=== PATIENT | male | born 2000 | race Caucasian/White ===

== ENCOUNTER 2023-03-27 02:46 | Emergency (ER) | payer MEDICAID, OTHER ==
[~2023-03-27] VITALS: Ht 172.7 cm; Wt 86.0 kg
[2023-03-27] MEDS ORDERED: TETRACAINE 0.5% OPHTH SOLN 4 ML BTL (SINGLE DOSE ONLY) ONE (03:04)
[2023-03-27] MEDS ORDERED: FLUORESCEIN 1 MG OPHTHALMIC STRIPS ONE (03:04)
[2023-03-27 03:06] VITALS: BP 144/100
--- NOTE | 2023-03-27 03:30 | ED EENT ---
History of Present Illness General Chief Complaint: Eye Problems Stated Complaint: RT EYE PX Nursing Triage Note: Pt presents with c/o R eye pain, swelling, tearing. Pt states he was wearing contacts and after he took his R one out his eye became red and painful. Pt reports attempting to use drops and ibuprofen without relief. Source: patient History of Present Illness Date Seen by Provider: Mar 27, 2023 Time Seen by Provider: 03:05 Initial Comments PT ARRIVES VIA POV C/O PAIN, REDNESS, WATERING TO RIGHT EYE SINCE YESTERDAY HE HAD NOT WORN HIS CONTACTS IN OVER A MONTH. HE PUT IN HIS OLD CONTACTS TODAY FOR THE FIRST TIME IN OVER A MONTH, AND HIS RIGHT EYE HAS FELT IRRITATED TODAY. HE TOOK THE CONTACT OUT AND THEN PUT IT BACK IN, AND THE PAIN AND REDNESS AND WATERING HAS GOTTEN WORSE HE USED AN UNKNOWN EYE DROP THAT HIS APPRAISER LAND GAVE HIM AND IT MADE WORSE. NO CHANGES IN VISION NO URI SYMPTOMS NO FEVER PT IS [facility] FROM [facility] Allergies and Home Medications Allergies Coded Allergies: No Known Drug Allergies (Unverified , 03/27/23) Patient Home Medication List Home Medication List Reviewed: Yes Review of Systems Review of Systems Constitutional: no symptoms reported Eyes: See HPI Ears: No Symptoms Reported Nose: no symptoms reported Throat: no symptoms reported Neurological: No Symptoms Reported; Denies Headache Past Nftxovo-Kmsdus-Ibviac Hx Past Medical History Surgeries: No Respiratory: No Cardiac: No Neurological: No Genitourinary: No Gastrointestinal: No Musculoskeletal: No Endocrine: No HEENT: Yes (WEARS CONTACTS) Cancer: No Psychosocial: No Integumentary: No Blood Disorders: No Physical Exam Vital Signs Vital Signs - First Documented 03/27/23 03:06 Temp 35.6 Pulse 68 Resp 16 B/P (MAP) 144/100 (115) Height, Weight, BMI Height: '" Weight: lbs. oz. kg; 28.00 BMI Method: General Appearance: WD/WN, no apparent distress Eyes: right eye conjunctival inflammation, right eye lid inflammation, right eye other (THERE IS DIFFUSE ERYTHEMA AND MILD SWELLING TO RIGHT UPPER AND LOWER EYELIDS. RIGHT CONJUNCTIVA IS MARKEDLY INFLAMED. NO PURULENT DRAINAGE. FLUORESCEIN STAIN--NO UPTAKE/NO ABRASION OR FOREIGN BODY. 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 II-XII nml as tested, no motor/sensory deficits, alert, oriented x 3 Skin: normal color, warm/dry Procedures/Interventions Eye : Location: right eye Anesthesia (gtts): Tetracaine Progress/Procedure Conclusion NO DYE UPTAKE OR ABRASION OR FOREIGN BODY Progress/Results/Core Measures Results/Orders My Orders Orders - CHRISTELLE MANNING DO Fluorescein Strips ([id number]) (03/27/23 03:04) Tetracaine 0.5% Ophth Khusih Sdv (Tetracai (03/27/23 03:04) Rx-Ofloxacin 0.3% Ophth Soln (Rx-Ocuflox (03/27/23 04:00) Medications Given in ED Current Medications Medications Dose Ordered Sig/Carlos Route Start Time Stop Time Status Last Admin Dose Admin Fluorescein Sodium 1 mg STK-MED ONCE .ROUTE 03/27/23 03:04 03/27/23 03:06 DC 03/27/23 03:26 1 MG Tetracaine HCl 4 ml STK-MED ONCE .ROUTE 03/27/23 03:04 03/27/23 03:06 DC 03/27/23 03:26 4 ML Vital Signs/I&O 03/27/23 03:06 Temp 35.6 Pulse 68 Resp 16 B/P (MAP) 144/100 (115) Blood Pressure Mean: 115 Progress Progress Note : Progress Note DISCUSSED ANTICIPATED COURSE, SYMPTOMATIC TREATMENT, USE OF EYE DROPS, NEED FOR FOLLOW UP AND RETURN PRECAUTIONS. Departure Impression Primary Impression: Conjunctivitis of right eye Disposition: 01 HOME, SELF-CARE Condition: Stable Departure-Patient Inst. Decision time for Depature: 03:28 Referrals: [facility] (PCP/Family) Primary Care Physician Patient Instructions: How to Use Eye Drops and Eye Ointment ED, Conjunctivitis ([facility]) ED Add. Discharge Instructions: WASH HANDS FREQUENTLY DO NOT RUB EYE DO NOT WEAR YOUR CONTACTS FOR AT LEAST 1 WEEK THROW YOUR CURRENT PAIR OF CONTACTS AND THE CONTAINER AWAY. USE EYE DROPS DIRECTED FOR 5 DAYS YOU MAY TAKE TYLENOL AND MOTRIN NEEDED FOR PAIN FOLLOW UP WITH [facility] ON WEDNESDAY IF NO BETTER, RETURN TO ER IF WORSE All discharge instructions reviewed with patient and/or family. Voiced understanding. CHRISTELLE MANNING DO Mar 27, 2023 03:30
[2023-03-27] MEDS ORDERED: RX-OFLOXACIN 0.3% OPHTH SOLN 5 ML OP SCH (04:00)
== END 2023-03-27 03:45 | disposition home or self-care (01) ==
LOC: ER 02:50
DX: H10.9 Unspecified conjunctivitis (principal); Z28.311 Partially vaccinated for COVID-19
CPT/HCPCS: 99281